=== PATIENT | female | born 1970 | race Caucasian/White ===

== ENCOUNTER 2025-02-09 00:33 | Day surgery (SDC) | payer OTHER, SELFPAY ==
[2025-01-31 15:23] VITALS: BMI 31.8
--- OUTSIDE RECORDS SUMMARY | 2025-02-09 00:36 | XMS_ITS | Clinical Summary ---
Author Organization [facility] Address [address] [place] [address] Care Team Providers Care Police Captain Senior Name Role Phone Kash Hernandez MD Primary Care Provider [phone] Source Comments [facility],non-owned Affiliates and Associated Physician Practices is amultiple site organization consisting of ambulatory clinics and hospital sitesin [place], [place], [place] and [place]. This disclosure is being madepursuant to the Care Everywhere program and may not contain all information available regarding this patient. Last updated 18.[facility] Allergies Active Allergy Reactions Criticality Noted Date Comments Banana Eye Discomfort Medium 01/22/2022 Numb tongue, eyes swell shut Medications * Be aware that medications may not be up to date on this document. Alwaysverify current medications with the patient. Medication Sig Dispensed Refills Start Date End Date Status atorvastatin (LIPITOR) 40 MG tablet Take 1 (one) tablet by mouth at bedtime Active omeprazole EC (PRILOSEC OTC) 20 MG tablet Take 1 (one) tablet by mouth daily before breakfast Active acetaminophen (TYLENOL) 500 MG tablet Take 1 (one) tablet by mouth every 4 hours as needed for Fever or Pain Maximum allowable Acetaminophen amount = 4 Grams (4000 mg) / 24 hours. Active diphenhydrAMINE (BENADRYL) 25 MG capsule Take 1 (one) capsule by mouth nightly as needed for Itching Active PARoxetine (PAXIL) 20 MG tablet Take 1 (one) tablet by mouth once daily 05/14/2022 Active Biotin 10 MG Active Docusate Sodium (COLACE PO) Active losartan-hydroCHL OROthiazide (Hyzaar) 100-12.5 MG tablet 06/22/2024 Active losartan (Cozaar) 50 MG tablet Take 2 (two) tablets by mouth once daily Active tirzepatide (Zepbound) 12.5 MG/0.5ML injectionIndicati ons:Class 1 obesity with body mass index (BMI) of 34.0 to 34.9 in adult, unspecified obesity type, unspecified whether serious comorbidity present Inject 12.5 (twelve and one-half) mg subcutaneously every 7 days for 56 days 4 mL 01/30/2025 5 Active losartan (Cozaar) 50 MG tablet 12/18/2022 Discontinue d(Dose Adjustment) tirzepatide (Zepbound) 7.5 MG/0.5ML injectionIndicati ons:Encounter for medication monitoring,Class 2 obesity with body mass index (BMI) of 35.0 to 35.9 in adult, unspecified obesity type, unspecified whether serious comorbidity present Inject 7.5 (seven and one-half) mg subcutaneously every 7 days 28 mL 11/27/2024 5 Discontinue d(Tx Complete) tirzepatide (Zepbound) 10 MG/0.5ML injectionIndicati ons:Class 1 obesity with body mass index (BMI) of 34.0 to 34.9 in adult, unspecified obesity type, unspecified whether serious comorbidity present Inject 10 (ten) mg subcutaneously every 7 days for 56 days 2 mL 1 12/11/2024 5 Discontinue d(List Clean-Up) tirzepatide (Zepbound) 12.5 MG/0.5ML injectionIndicati ons:Class 1 obesity with body mass index (BMI) of 34.0 to 34.9 in adult, unspecified obesity type, unspecified whether serious comorbidity present Inject 12.5 (twelve and one-half) mg subcutaneously every 7 days for 56 days 4 mL 01/12/2025 5 Discontinue d(Tx Complete) Active Problems Problem Noted Date Diagnosed Date Morbid obesity 06/22/2022 Encounters Date Type Department Care Team Description 01/30/2025 11:00 AM CDT Office Visit [facility] [address] [place] [address], [address] [place] [id number] Onel Lopez MD Morbid obesity (Primary Dx); BMI 31.0-31.9,adult; Class 1 obesity with body mass index (BMI) of 34.0 to 34.9 in adult, unspecified obesity type, unspecified whether serious comorbidity present; S/P bariatric surgery 01/12/2025 12:45 PM OIL ANALYST Office Visit [facility] [address] [place] [address], [address] [address] Comfort Reeder APRN-CNP Class 1 obesity with body mass index (BMI) of 34.0 to 34.9 in adult, unspecified obesity type, unspecified whether serious comorbidity present (Primary Dx); Encounter for medication monitoring; S/P bariatric surgery 12/11/2024 9:20 AM OIL ANALYST Office Visit [facility] [address] [place] [address], [address] [address] Comfort Reeder APRN-CNP Class 1 obesity with body mass index (BMI) of 34.0 to 34.9 in adult, unspecified obesity type, unspecified whether serious comorbidity present (Primary Dx); Encounter for medication monitoring; S/P bariatric surgery 11/25/2024 Refill [facility] [address] [place] [address], [address] [address] Comfort Reeder APRN-CNP MEDICATION REFILL 11/21/2024 Refill [facility] [address] [place] [address], [address] [address] Comfort Reeder APRN-CNP Refill Request from Last 3 Months Family History Medical History Relation Name Comments Hypertension Father Hypertension Mother Obesity Sister Relation Name Status Comments Father Mother Sister Social History Tobacco Use Types Packs/Day Years Used Date Smoking Tobacco: Former Cigarettes Q uit: 11/21/2021 Smokeless Tobacco: Never Tobacco Cessation:Counseling Given: Not Answered Alcohol Use Standard Drinks/Week Comments Yes 0 (1 standard drink = 0.6 oz pur e alcohol) occ AUDIT-C Answer Date Recorded Q1: How often do you have a drink containing alcohol? Never 06/22/2022 Q2: How many drinks containi ng alcohol do you have on a typical day when you are drinking? Patient does not drink Q3: How often do you have si x or more drinks on one occasion? Never 06/22/2022 Sex and Gender Information Value Date Recorded Sex Assigned at Female 12/17/2022 10:31 AM OIL ANALYST Gender Identity Female 12/17/2022 10:31 AM OIL ANALYST Sexual Orientation Not on file Last Filed Vital Signs Vital Sign Reading Time Taken Comments Blood Pressure 126/76 01/30/2025 11:09 AM CDT Pulse 99 01/30/2025 11:09 AM CDT Temperature 36.1 C (97 F) 01/30/2025 11:09 AM CDT Respiratory Rate 17 06/23/2022 3:18 PM CDT Oxygen Saturation 99% 01/30/2025 11:09 AM CDT Inhaled Oxygen Concentration - - Weight 81.8 kg (180 lb 6.4 oz) 01/30/2025 11:09 AM CDT Height 160 cm (5' 3 ) 01/30/2025 11:09 AM CDT Body Mass Index 31.96 01/30/2025 11:09 AM CDT Plan of Treatment Upcoming Encounters Date Type Department Care Team (Late st Contact Info) Description 03/12/2025 10:20 AM CDT [facility] [address] [place] [address], [address] [id number] Comfort Reeder APRN-HIDE SELECTOR [phone] [place] [phone] 08/31/2025 9:30 AM CDT Office [facility] [address] [place] [address], [facility] [address] [place] [address] Comfort Reeder, PROFILE TRIMMER-HIDE SELECTOR [id number] [place] [address] Health Maintenance Due Date Last Done Comments COLOGUARD (AGES 45-75) - COLON CA SCREENING 1970 COLON MONITORING 1970 COLONOSCOPY - COLON CA SCREENING 1970 CT COLONOGRAPHY - COLON CA SCREENING 1970 Colorectal Cancer Screening 1970 FIT - COLON CA SCREENING 1970 FLEX SIG - COLON CA SCREENING 1970 HIV SCREENING 1985 HEPATITIS C SCREENING 06/22/1988 DTAP/TDAP/TD VACCINES (1 - Tdap) 1989 HEPATITIS B VACCINE (1 of 3 - 19+ 3-dose series) 1989 PNEUMOCOCCAL VACCINE 50+ (1 of 1 - PCV) 2020 ZOSTER VACCINE (1 of 2) 2020 MAMMOGRAM 07/14/2024 07/14/2022, 07/14/2022 COVID-19 VACCINE (1 - season) 2024 INFLUENZA VACCINE (#1) 2024 DEPRESSION SCREENING 11/22/2024 PAP SMEAR 02/20/2025 02/20/2022 SCREENING FOR DIABETES 08/28/2027 , 08/27/2023, 06/23/2022, Additional history exists HIB VACCINE Aged Out No longer eligi ble based on patient's age to complete this topic HPV VACCINE Aged Out No longer eligi ble based on patient's age to complete this topic MENINGOCOCCAL (Group B) VACCINE SHARED DECISION-MAKING Aged Out No longer eligible based on patient's age to complete this topic MENINGOCOCCAL GROUPS A/C/Y/W VACCINE Aged Out No longer eligible based on patient's age to complete this topic Procedures Procedure Name Priority Date/Time Associated Diagnosis Comments COMPREHENSIVE METABOLIC PANEL Routine 08/28/2024 2:03 PM CDT S/P bariatric surgery Vitamin deficiency Vitamin B deficiency Vitamin D deficiency Mineral deficiency Class 1 obesity with body mass index (BMI) of 34.0 to 34.9 in adult, unspecified obesity type, unspecified whether serious comorbidity present from Last 3 Months or Most Recently Relevant to Health Maintenance Results * COMPREHENSIVE METABOLIC PANEL (08/28/2024 2:03 PM CDT) Glucose 91 70 - 99 mg/dL [facility] ACCOUNT BILL BUN 18 7 - 26 mg/dL [facility] ACCOUNT BILL Creatinine 0.73 0.57 - 1.11 mg/dL [facility] ACCOUNT BILL eGFR by CKD-EPI >90 >=90 mL/min/1.7 3 m2 [facility] ACCOUNT BILL Sodium 137 136 - 145 mmol/L [facility] ACCOUNT BILL Potassium 4.3 3.5 - 5.1 mmol/L [facility] ACCOUNT BILL Chloride 100 98 - 107 mmol/L [facility] ACCOUNT BILL CO2 28 22 - 29 mmol/L [facility] ACCOUNT BILL Calcium 10.1 8.4 - 10.4 mg/dL [facility] ACCOUNT BILL Protein Total 7.8 6.4 - 8.3 gm/dL [facility] ACCOUNT BILL Albumin 4.4 3.4 - 5.0 gm/dL [facility] ACCOUNT BILL Bilirubin Total 0.4 0.2 - 1.2 mg/dL [facility] ACCOUNT BILL Alkaline Phosphatase 78 40 - 150 U/L [facility] ACCOUNT BILL AST 24 5 - 34 U/L [facility] ACCOUNT BILL ALT 25 0 - 55 U/L [facility] ACCOUNT BILL Blood BLOOD SPECIMEN / Unknown 08/28/2024 2:03 PM CDT 08/28/2024 Narrative [facility] ACCOUNT BILL - 08/28/2024 11:07 PM CDT Performed at: [address] [place] [address] [place], [place] [id number] Footwear Sales Associate: Caity Castillo [facility], Phone: [phone] Comfort Reeder PROFILE TRIMMER-HIDE SELECTOR LAB - JAKOB KAMILAH ORDERABLES [facility] ACCOUNT BILL [address] [place] [address] from Last 3 Months or Most Recently Relevant to Health Maintenance Advance Directives * Full Code (Latest Code Status on File) Date Activated Date Inactivated Comments 06/22/2022 10:21 AM 06/23/2022 7:26 PM Care Teams Police Captain Senior Relationship Specialty Start Date End Date Kash Hernandez MD [address] [place] [address] PCP - General Family Medicine 01/22/22
--- OUTSIDE RECORDS SUMMARY | 2025-02-09 00:36 | XMS_ITS | Clinical Summary ---
Author Organization [facility] Address [address] [place] [address] Care Team Providers Care Lyft Driver Name Role Phone Kash Hernandez MD Primary Care Provider [phone] Social History Tobacco Use Types Packs/Day Years Used Date Smoking Tobacco: Never Assessed Comments No Sex and Gender Information Value Date Recorded Sex Assigned at Not on file Legal Sex Female 11:31 AM CDT Gender Identity Not on file Sexual Orientation Not on file Plan of Treatment Health Maintenance Due Date Last Done Comments Colorectal Cancer Screening Colonoscopy (10 Years) 1970 Annual Physical 1973 Hepatitis C 1988 DTaP, Tdap and Td Vaccines ( 1 - Tdap) 1989 Hepatitis B Vaccines (1 of 3 - 19+ 3-dose series) 1989 Cervical Cancer Screening Pa p with HPV Testing (Age 30 to 64) Every 5 Years 2000 Zoster Vaccines (1 of 2) 2020 Mammogram Screening 07/14/2024 07/14/2022 COVID-19 Vaccine ( - 2023-2 5 season) 2024 01/10/2021, 12/12/2020 Influenza Adult (#1) 2024 Cervical Cancer Screening Pa p Smear (Age 30 to 64) Every 3 Years 02/20/2025 02/20/2022 Cervical Cancer Screening wi th HPV 02/20/2025 Meningococcal B Vaccine Aged Out No l onger eligible based on patient's age to complete this topic Meningococcal Vaccine Aged Out No dionisio kathy eligible based on patient's age to complete this topic Pneumococcal Vaccine: Pediatrics (0 to 5 Years) and At-Risk Patients (6 to 64 Years) Aged Out No longer eligible b ased on patient's age to complete this topic RSV Immunizations Under 20 Months Aged Out No longer eligible b ased on patient's age to complete this topic Procedures Procedure Name Priority Date/Time Associated Diagnosis Comments MG SCREENING W KATTY JLUIS DIGI Routine 07/14/2022 9:57 AM CDT Encounter for screening mammogram for malignant neoplasm of breast from Last 3 Months or Most Recently Relevant to Health Maintenance Results * MG SCREENING W KATTY JLUIS DIGI (07/14/2022 9:57 AM CDT) Anatomical Region Laterality Modality Breast Bilateral Mammography 07/14/2022 5:08 PM CDT Impressions 07/14/2022 5:08 PM CDT IMPRESSION: No suspicious change since the previous exams. Recommendation: 1: Routine Screening Bilateral in 1 Year Assessment: ACR BI-RADS 2 - BENIGN FINDING(S) Ordered By: PROVIDER NON-STAFF Interpreted By: Rodney Gallego MD, 07/14/2022 5:08 PM Narrative 07/14/2022 5:08 PM CDT Examination: Digital screening mammogram with CAD. Clinical history: Asymptomatic patient presents for routine screening. Comparison: 11/04/2018, 07/28/2016. Technique: Bilateral digital mammograms. The exam was interpreted with the use of a computer-aided detection (CAD) system. Additional 3-D tomosynthesis images were acquired. Tissue density: The breast tissue contains scattered fibroglandular densities. Findings: The breast tissue contains scattered fibroglandular densities. Benign-appearing calcification noted. No suspicious mass, microcalcification or area of architectural distortion can be identified. From a mammographic standpoint, routine followup in one year would seem adequate. us Provider Non-Staff MAMMO Final Result from Last 3 Months or Most Recently Relevant to Health Maintenance Insurance [employer] Care Teams Lyft Driver Relationship Specialty Start Date End Date Kash Hernandez MD [address] [place] [address] PCP - General FAMILY PRACTICE 07/09/22
[2025-02-09 06:29] VITALS: BP 132/70; PULSE 77; RESP 18; TEMP 36.1; O2SAT 99
--- NOTE | 2025-02-09 06:38 | WPDANESEPPF ---
Anes - Initial Pre Proc Eval Procedure: Operation Date: 02/09/25 07:30 Proposed Procedures p Screening Colonoscopy - Rob James MD Date/Time: 02/09/25 06:38 Surgeon: Rob James MD Pre Op Diagnosis: Screening for malignant neoplasm Patient Data Age: 54 Gender: F Height: 1.6 m Weight: 81.6 kg Last Vital Signs Temp 36.1 C L 02/09/25 06:29 Pulse 77 02/09/25 06:29 Resp 18 02/09/25 06:29 BP 132/70 02/09/25 06:29 Pulse Ox 99 02/09/25 06:29 O2 Del Method Room Air 02/09/25 06:29 Allergies Allergy/AdvReac Type Severity Reaction Status Date / Time No Known Allergies Allergy Verified 02/09/25 06:27 Home Medications ?Medication ?Instructions ?Recorded ?Confirmed ?Type atorvastatin 40 mg tablet 40 mg PO DAILY 01/31/25 01/31/25 History docusate sodium 100 mg capsule 100 mg PO BID 01/31/25 01/31/25 History (Colace) losartan 100 1 tablet PO DAILY 01/31/25 01/31/25 History mg-hydrochlorothiazide 12.5 mg tablet paroxetine HCl 20 mg tablet 20 mg PO DAILY 01/31/25 01/31/25 History tirzepatide (weight loss) 7.5 12.5 mg subcut WEEKLY 01/31/25 01/31/25 History mg/0.5 mL subcutaneous pen injector (Zepbound) Patient hx anesthesia problems: none Family hx anesthesia problems: none Results Review: All pre-operative results and documents have been reviewed as part of the pre-operative evaluation. [facility] Past Medical History Medical History (Updated 02/09/25 @ 06:39 by Timothy Torres MD) Hyperlipidemia HTN (hypertension) Obesity Surgical History Surgical History (Updated 02/09/25 @ 06:39 by Timothy Torres MD) S/P gastric sleeve procedure Social History Social History (System 10/02/24 @ 10:34 by Anyi Chamberlain) Smoking packs per day: 1 Smoking cigarettes per day: 20.0 Years smoked: 28 Smoking pack-years: 28.00 Smoking status: Current every day smoker Tobacco type: cigarettes Substance use type: does not use Living arrangements: with family Spiritual care concerns: No Anes - Eval Final PreProcedure Day of Procedure 02/09/25 06:38 Patient weight: obese Last oral intake: >/= 8 hours ASA classification: III Emergent: no Anesthetic plan: proceed Anesthesia type and monitoring: general GIVS and standard monitoring Results Review: All pre-operative results and documents have been reviewed as part of the pre-operative evaluation. Informed Consent: The patient's anesthetic plan and its attendant risks and benefits were discussed with the patient/family/POA. Questions were solicited and answers provided to the satisfaction of the patient/family/POA.
[2025-02-09] MEDS: LACTATED RINGERS 1,000 ML 150 ML IV CONT (06:41)
--- NOTE | 2025-02-09 07:26 | PM.IMHP ---
H&P: HPI History of Present Illness Date/Time: 02/09/25 07:26 Chief Complaint: Screening colonoscopy Narrative: This is the patient's first colonoscopy. There are no GI symptoms and there is no family history of colorectal cancer. Review of Systems Review of Systems: All systems reviewed & are unremarkable except as noted in HPI and below [facility] Past Medical History Medical History (Updated 02/09/25 @ 07:27 by Rob James MD) Hyperlipidemia HTN (hypertension) Obesity Surgical History Surgical History (Updated 02/09/25 @ 06:39 by Timothy Torres MD) S/P gastric sleeve procedure Social History Social History (System 10/02/24 @ 10:34 by Anyi Chamberlain) Smoking packs per day: 1 Smoking cigarettes per day: 20.0 Years smoked: 28 Smoking pack-years: 28.00 Smoking status: Current every day smoker Tobacco type: cigarettes Substance use type: does not use Living arrangements: with family Spiritual care concerns: No Meds Home Medications and Allergies Home Medications ?Medication ?Instructions ?Recorded ?Confirmed ?Type atorvastatin 40 mg tablet 40 mg PO DAILY 01/31/25 01/31/25 History docusate sodium 100 mg capsule 100 mg PO BID 01/31/25 01/31/25 History (Colace) losartan 100 1 tablet PO DAILY 01/31/25 01/31/25 History mg-hydrochlorothiazide 12.5 mg tablet paroxetine HCl 20 mg tablet 20 mg PO DAILY 01/31/25 01/31/25 History tirzepatide (weight loss) 7.5 12.5 mg subcut WEEKLY 01/31/25 01/31/25 History mg/0.5 mL subcutaneous pen injector (Zepbound) Allergies Allergy/AdvReac Type Severity Reaction Status Date / Time No Known Allergies Allergy Verified 02/09/25 06:27 Vital Signs Vital Signs - 24 hr 02/09/25 06:29 Temperature 97 F L Pulse Rate 77 Respiratory Rate 18 Blood Pressure 132/70 Pulse Oximetry 99 Oxygen Delivery Room Air Exam Const: General: cooperative and healthy appearing Resp: Effort & Inspection: normal respiratory effort and able to speak in complete sentences Auscultation: clear to auscultation bilaterally Cardio: Rate: regular rate Rhythm: regular rhythm GI: Inspection: normal to inspection GI Palp: No No hepatosplenomegaly present Auscultation: normal bowel sounds Rectal Exam: deferred Skin: General skin exam: normal color Psych: Appearance: grossly normal Mental Status: mental status grossly normal Assessment and Plan Assessment and plan (1) Encounter for screening colonoscopy: Code(s): Z12.11 - Encounter for screening for malignant neoplasm of colon Status: Acute Assessment and Plan: The patient is deemed a good candidate for the procedure. Consent signed. Will proceed.
[2025-02-09 07:45] VITALS: BP 94/56; PULSE 79; RESP 21; O2SAT 100
[2025-02-09 07:55] VITALS: BP 101/51; PULSE 74; RESP 20; O2SAT 100
[2025-02-09 08:05] VITALS: BP 113/66; PULSE 68; RESP 14; O2SAT 100
== END 2025-02-09 08:22 | disposition home or self-care (01) ==
PROVIDERS: PCP Family Medicine; Referring Provider Student in an Organized Health Care Education/Training Program; Visit Provider Internal Medicine Gastroenterology
PROC: 0DJD8ZZ Inspection of Lower Intestinal Tract, Via Natural or Artificial Opening Endoscopic (ICD-10-PCS; CPT 45378; principal; 2025-02-09 07:30)
DX: Z12.11 Encounter for screening for malignant neoplasm of colon (principal); K57.30 Diverticulosis of large intestine without perforation or abscess without bleeding; K64.8 Other hemorrhoids; F17.210 Nicotine dependence, cigarettes, uncomplicated; E66.9 Obesity, unspecified; Z68.31 Body mass index [BMI] 31.0-31.9, adult
CPT/HCPCS: 45378; J2003; J2704; J7120

== ENCOUNTER 2025-11-09 12:49 | Outpatient (CLI) | payer OTHER, SELFPAY ==
--- NOTE | ~2025-11-09 | MM_ITS ---
EXAMINATION: MM screening madelaine BI w bree HISTORY: Screening TECHNIQUE: Craniocaudal and mediolateral oblique 3-D tomosynthesis images were obtained and synthetic 2-D images were generated. CAD analysis was submitted and interpreted. COMPARISON: Comparison to multiple prior studies sequentially, with oldest reviewed study dated 11/04/2018. BREAST PARENCHYMAL COMPOSITION: Not dense: There are scattered areas of fibroglandular density. FINDINGS: There is no evidence of suspicious mass, calcification, or architectural distortion to suggest malignancy in either breast. There has been no suspicious interval change. IMPRESSION: 1. No mammographic evidence of malignancy. 2. Recommend routine screening mammography in one year. BI-RADS Category 1: Negative Reviewed, dictated and finalized at location O. TRUCK DRIVER
--- OUTSIDE RECORDS SUMMARY | 2025-11-09 12:55 | XMS_ITS | Clinical Summary ---
Author Organization [facility] Address [address] [place] [address] Care Team Providers Care Taxi Cab Driver Name Role Phone Kash Hernandez MD Primary Care Provider [phone] Social History Tobacco Use Types Packs/Day Years [...] 30 to 64) Every 5 Years 2000 Pneumococcal Vaccine: 50+ Years (1 of 1 - PCV) 2020 Zoster Vaccines (1 of 2) 2020 Mammogram Screening 07/14/2024 07/14/2022 Cervical Cancer Screening Pa p Smear (Age 30 to 64) Every 3 Years 02/20/2025 02/20/2022 Cervical Cancer Screening wi th HPV 02/20/2025 COVID-19 Vaccine ( - 2024-2 6 season) 2025 01/10/2021, 12/12/2020 Influenza Adult (#1) 2025 Hepatitis A Vaccines Aged Out No long er eligible based on patient's age to complete this topic Meningococcal B Vaccine Aged Out No l [...] Most Recently Relevant to Health Maintenance Insurance [employer] Care Teams Taxi Cab Driver Relationship Specialty Start Date End Date Kash Hernandez MD [address] [place] [address] PCP - General FAMILY PRACTICE 07/09/22
--- OUTSIDE RECORDS SUMMARY | 2025-11-09 12:55 | XMS_ITS | Clinical Summary ---
Author Organization [facility] [employer] Address [address] [place] [address] Care Team Providers Care Well Services Operator Name Role Phone Kash Hernandez MD Primary Care Provider [phone] Source Comments [facility] [employer],non-owned Affiliates and Associated Physician Practices is amultiple site organization consisting of ambulatory clinics and hospital sitesin [place], [place], [place] and [place]. This disclosure is being madepursuant to the Care Everywhere program and may not contain all information available regarding this patient. Last updated 18.[facility] [employer] Allergies Active Allergy Reactions Criticality Noted Date Comments Banana Eye Discomfort Medium 01/22/2022 Numb tongue, eyes swell shut Medications * Be aware that medications may not be up to date on this document. Alwaysverify current medications with the patient. atorvastatin (LIPITOR) 40 MG tablet Take 1 [...] 1 (one) tablet by mouth once daily 05/14/20 22 Active Biotin 10 MG Active Docusate Sodium (COLACE PO) Active losartan-hydroC HLOROthiazide (Hyzaar) 100-12.5 MG tablet 06/22/20 24 Active losartan (Cozaar) 50 MG tablet Take 2 (two) tablets by mouth once daily Active tirzepatide (Zepbound) 12.5 MG/0.5ML injectionIndica tions:Class 1 obesity with body mass index (BMI) of 34.0 to 34.9 in adult, unspecified obesity type, unspecified whether serious comorbidity present Inject 12.5 (twelve and one-half) mg subcutaneously every 7 days for 56 days 4 mL 01/31/20 25 026 Active tirzepatide (Zepbound) 15 MG/0.5ML injectionIndica tions:Class 1 obesity with body mass index (BMI) of 34.0 to 34.9 in adult, unspecified obesity type, unspecified whether serious comorbidity present Inject 15 (fifteen) mg subcutaneously every 7 days (once a week) 2 mL 3 04/24/20 25 Active tirzepatide (Zepbound) 15 MG/0.5ML injectionIndica tions:Class 1 obesity with body mass index (BMI) of 34.0 to 34.9 in adult, unspecified obesity type, unspecified whether serious comorbidity present Inject 15 (fifteen) mg subcutaneously every 7 days (once a week) for 56 days 2 mL 2 08/31/20 25 Active Active Problems Problem Noted Date Diagnosed Date Morbid obesity 06/22/2022 Encounters Date Type Department Care Team Description 10/11/2025 Results Follow-Up [facility] [address] [place] [address], [address] [address] Onel Lopez MD 10/05/2025 Orders Only [facility] [address] [place] [address], [address] [address] Comfort Reeder APRN-CNP 08/31/2025 9:30 AM CDT Office Visit [facility] [address] [place] [address], [address] [address] Comfort Reeder APRN-CNP Class 1 obesity with body mass index (BMI) of 34.0 to 34.9 in adult, unspecified obesity type, unspecified whether serious comorbidity present (Primary Dx); Vitamin deficiency; Vitamin B deficiency; Vitamin D deficiency; Mineral deficiency; S/P bariatric surgery from Last 3 Months Family History Medical History Relation Name Comments Hypertension Father Hypertension Mother Obesity Sister Relation Name Status Comments Father Mother Sister Social History Tobacco Use Types Packs/Day Years Used Date Smoking Tobacco: Former Cigarettes 0.5 Q uit: 11/21/2021 Smokeless Tobacco: Never Tobacco [...] more drinks on one occasion? Never 06/22/2022 Comments No Sex and Gender Information Value Date Recorded Sex Assigned at Female 12/17/2022 10:31 AM PUMPING PLANT OPERATOR Legal Sex Female 5:10 AM PUMPING PLANT OPERATOR Gender Identity Female 12/17/2022 10:31 AM PUMPING PLANT OPERATOR Sexual Orientation Not on file Last Filed Vital Signs Vital Sign Reading Time Taken Comments Blood Pressure 130/80 08/31/2025 9:24 AM CDT Pulse 88 08/31/2025 9:24 AM CDT Temperature 36 C (96.8 F) 08/31/2025 9:24 AM CDT Respiratory Rate 17 06/23/2022 3:18 PM CDT Oxygen Saturation 98% 08/31/2025 9:24 AM CDT Inhaled Oxygen Concentration - - Weight 68.9 kg (151 lb 12.8 oz) 08/31/2025 9:24 AM CDT Height 152.4 cm (5') 08/31/2025 9:24 AM CDT Body Mass Index 29.65 08/31/2025 9:24 AM CDT Plan of Treatment Upcoming Encounters Date Type Department Care Team (Late st Contact Info) Description 12/10/2025 9:00 AM PUMPING PLANT OPERATOR Office Visit [facility] [address] [facility] [address] [place] [address] Comfort Reeder, FREELANCE DISPLAYER-SENIOR IT ENGINEER [address] [facility] [address] [place] [address] 08/30/2026 11:00 AM CDT Office Visit [facility] [address] [address] [facility] [place] [address] Comfort Reeder, FREELANCE DISPLAYER-SENIOR IT ENGINEER [address] [facility] [address] [place] [address] Health Maintenance Due Date Last [...] of 2) 2020 MAMMOGRAM 07/14/2024 07/14/2022, 07/14/2022 DEPRESSION SCREENING 11/22/2024 PAP SMEAR 02/20/2025 02/20/2022, 02/20/2022 COVID-19 VACCINE ( - season) 2025 INFLUENZA VACCINE (#1) 2025 SCREENING FOR DIABETES 10/05/2028 5, 08/28/2024, 08/27/2023, Additional history exists HIB VACCINE Aged Out [...] Procedure Name Priority Date/Time Associated Diagnosis Comments VITAMIN B1 10/05/2025 9:29 AM PUMPING PLANT OPERATOR VITAMIN D 25-HYDROXY 10/05/2025 9:29 AM PUMPING PLANT OPERATOR VITAMIN B12 10/05/2025 9:29 AM PUMPING PLANT OPERATOR CBC W/O DIFFERENTIAL 10/05/2025 9:29 AM PUMPING PLANT OPERATOR COMPREHENSIVE METABOLIC PANEL 10/05/2025 9:29 AM PUMPING PLANT OPERATOR from Last 3 Months Results * (ABNORMAL) VITAMIN B1 (10/05/2025 9:29 AM PUMPING PLANT OPERATOR) Vitamin B1 Whole Blood 200(H) 78 - 185 nmol/L [facility] Comment: (Note) Vitamin supplementation within 24 hours prior to blood draw may affect the accuracy of the results. This test was developed and its analytical performance characteristics have been determined by [employer]. It has not been cleared or approved by FDA. This assay has been validated pursuant to the CLIA regulations and is used for clinical purposes. [facility] [address] [address],[address] [facility] [address] Alexa Guerrero MD, PhD Test Performed at: [facility] [address] [place] [address] [address] [place] [phone] ALEXA GUERRERO MD,PHD 10/05/2025 9:29 AM PUMPING PLANT OPERATOR 10/05/2025 9:30 AM PUMPING PLANT OPERATOR Comfort Reeder FREELANCE DISPLAYER-SENIOR IT ENGINEER LAB - CHEMISTRY O RDERABLES Final Result [facility] [address] [place] [address] * VITAMIN D 25-HYDROXY (10/05/2025 9:29 AM PUMPING PLANT OPERATOR) Vitamin D, 25 Hydroxy 57 30 - 100 ng/mL [facility] Comment: Vitamin D Status 25-OH Vitamin D: Deficiency: <20 ng/mL Insufficiency: 20 - 29 ng/mL Optimal: > or = 30 ng/mL For 25-OH Vitamin D testing on patients on D2-supplementation and patients for whom quantitation of D2 and D3 fractions is required, the [facility]() 25-OH VIT D, (D2,D3), LC/MS/MS is recommended: order code 97916 (patients >2yrs). See Note 1 Note 1 For additional information, please refer to http://education.[employer]/faq/TZB307 (This link is being provided for informational/ educational purposes only.) Test Performed at: [employer] [place] [address] THERESA ROGERS MD 10/05/2025 9:29 AM PUMPING PLANT OPERATOR 10/05/2025 9:30 AM PUMPING PLANT OPERATOR Comfort Reeder FREELANCE DISPLAYER-SENIOR IT ENGINEER LAB - CHEMISTRY O RDERABLES Final Result [facility] [address] [place] [address] * CBC W/O DIFFERENTIAL (10/05/2025 9:29 AM PUMPING PLANT OPERATOR) White Blood Cell Count 4.8 3.8 - 10.8 Thousand/u L [facility] RBC 4.65 3.80 - 5.10 Million/uL [facility] Hemoglobin 14.5 11.7 - 15.5 g/dL [facility] Hematocrit 44.1 35.0 - 45.0 % [facility] MCV 94.8 80.0 - 100.0 fL [facility] MCH 31.2 27.0 - 33.0 pg [facility] MCHC 32.9 32.0 - 36.0 g/dL [facility] Comment: For adults, a slight decrease in the calculated MCHC value (in the range of 30 to 32 g/dL) is most likely not clinically significant; however, it should be interpreted with caution in correlation with other red cell parameters and the patient's clinical condition. RDW 12.4 11.0 - 15.0 % [facility] Platelet Count 256 140 - 400 Thousand/u L [facility] MPV 9.0 7.5 - 12.5 fL [facility] Comment: Test Performed at: [facility] [address] [place] [address] THERESA ROGERS MD 10/05/2025 9:29 AM PUMPING PLANT OPERATOR 10/05/2025 9:30 AM PUMPING PLANT OPERATOR Comfort Lopez Varinder [facility] LAB - HEMATOLOGY ORDERABLES Final Result Performing Organization Address [facility]/ZIP Co de Phone Number [facility] [address] [address] [phone] * COMPREHENSIVE METABOLIC PANEL (10/05/2025 9:29 AM PUMPING PLANT OPERATOR) Glucose 89 65 - 99 mg/dL [facility] Comment: Fasting reference interval BUN 11 7 - 25 mg/dL [facility] Creatinine 0.55 0.50 - 1.03 mg/dL [facility] eGFR by Cystatin C 108 > OR = 60 mL/min/1. 73m2 [facility] BUN/Creatinine Ratio SEE NOTE: 6 - 22 (calc) [facility] Comment: Not Reported: BUN and Creatinine are within reference range. Sodium 135 135 - 146 mmol/L [facility] Potassium 4.5 3.5 - 5.3 mmol/L [facility] Chloride 99 98 - 110 mmol/L [facility] CO2 24 20 - 32 mmol/L [facility] Calcium 9.5 8.6 - 10.4 mg/dL [facility] Protein Total 7.4 6.1 - 8.1 g/dL [facility] Albumin 4.6 3.6 - 5.1 g/dL [facility] Globulin Total 2.8 1.9 - 3.7 g/dL (calc) [facility] Albumin/Globulin Ratio 1.6 1.0 - 2.5 (calc) [facility] Bilirubin Total 0.5 0.2 - 1.2 mg/dL [facility] Alkaline Phosphatase 70 37 - 153 U/L [facility] AST 19 10 - 35 U/L [facility] ALT 26 6 - 29 U/L [facility] Comment: Test Performed at: [facility] [address] [place] [phone] THERESA ROGERS MD 10/05/2025 9:29 AM PUMPING PLANT OPERATOR 10/05/2025 9:30 AM PUMPING PLANT OPERATOR Comfort Rae Varinder [facility] - CHEMISTRY O RDERABLES Final Result Performing Organization Address [facility] Co de Phone Number [facility] [address] [place] [address] * VITAMIN B12 (10/05/2025 9:29 AM PUMPING PLANT OPERATOR) Vitamin B12 767 200 - 1100 pg/mL [facility] Comment: Test Performed at: [facility] [address] [place] [address] THERESA ROGERS MD 10/05/2025 9:29 AM PUMPING PLANT OPERATOR 10/05/2025 9:30 AM PUMPING PLANT OPERATOR Comfort Reeder FREELANCE DISPLAYER-SENIOR IT ENGINEER LAB - CHEMISTRY O RDERABLES Final Result [facility] [address] [place] [address] from Last 3 Months Insurance [employer] [facility] Address: [facility] [id number] [place] [address] Advance Directives * Full Code (Latest Code Status on File) Date Activated Date Inactivated Comments 06/22/2022 10:21 AM 06/23/2022 7:26 PM Care Teams Well Services Operator Relationship Specialty Start Date End Date Kash Hernandez MD [address] [place] [id number] PCP - General Family Medicine 01/22/22
== END 2025-11-09 12:50 | disposition home or self-care (01) ==
PROVIDERS: PCP Family Medicine; Visit Provider Obstetrics & Gynecology
DX: Z12.31 Encounter for screening mammogram for malignant neoplasm of breast (principal)
CPT/HCPCS: 77063; 77067